=== PATIENT | female | born 1935 | race Two or more races ===

== ENCOUNTER 2021-07-05 10:15 | Inpatient (IN) | payer BC, MEDICARE, OTHER ==
[~2021-07-05] VITALS: Ht 152.4 cm; Wt 69.2 kg
[2021-07-05 11:13] LABS: Basophils # (auto) 0 10 ^3/uL (0-0.2); Basophils % (auto) 0.2 % (0.0-2.0); Eosinophils # (auto) 0 10 ^3/uL (0-0.8); Hematocrit 41.5 % (36.0-46.0); Hemoglobin 14.1 g/dL (12.2-16.2); Lymphocytes % (auto) 6.7 % (10.0-50.0); Mean Corpuscular Hemoglobin 30.6 pg (28.0-32.0); Monocytes # (auto) 0.8 10 ^3/uL (0-1.3); Neutrophils # (auto) 13.1 10 ^3/uL (1.6-8.6); Neutrophils % (auto) 88.1 % (37.0-80.0); Red Blood Cells 4.61 10^6/uL (4.0-5.20); Red Cell Distribution Width 13.5 % (11.8-14.3); White Blood Cell 14.9 10^3/uL (4.4-10.8)
[2021-07-05 11:27] LABS: Albumin 3.2 g/dL (3.4-5.0); Anion Gap 5 (5-15); Calcium 8.6 mg/dL (8.5-10.1); Carbon Dioxide 24 mmol/L (21-32); Chloride 106 mmol/L (98-107); Potassium 3.9 mmol/L (3.5-5.1); Sodium 135 mmol/L (136-145)
[2021-07-05 11:39] LABS: Alanine Aminotransferase 24 U/L (13-56); Alkaline Phosphatase 66 U/L (45-117); Aspartate Aminotransferase 14 U/L (15-37); BUN/Creatinine Ratio 11.6; Bilirubin, Total 0.7 mg/dL (0.2-1.0); Blood Urea Nitrogen 11 mg/dL (7-18); GFR African American 72 mL/min; GFR Non-African American 60 mL/min; Glucose 182 mg/dL (74-106); Total Protein 8.1 g/dL (6.4-8.2)
[2021-07-05] MEDS ORDERED: ACETAMINOPHEN 325 MG TAB PO ONE (12:30)
[2021-07-05] MEDS ORDERED: cefTRIAXone 1GM/50ML D5W 50 ML IV ONE (13:00)
[2021-07-05] MEDS ORDERED: NITROGLYCERIN 0.4 MG SL TAB SL PRN (15:15)
[2021-07-05] MEDS ORDERED: MORPHINE SULFATE INJECTION 2 MG/2 ML SYRG IV PRN (15:15)
[2021-07-05] MEDS ORDERED: levoFLOXacin 500MG 100 ML IV ONE (15:34)
[2021-07-05] MEDS: MORPHINE SULFATE INJECTION 2 MG/2 ML SYRG IV PRN ×2 (16:05→20:55)
[2021-07-05] MEDS: ONDANSETRON HCL 4 MG/2 ML VIAL IV PRN (16:06)
[2021-07-05] MEDS ORDERED: CLON0.1T PO (19:17)
[2021-07-05] MEDS ORDERED: GLIM-5 PO (19:17)
[2021-07-05] MEDS ORDERED: POTA1TAB61 PO (19:19)
[2021-07-05] MEDS ORDERED: SITA100T7 PO (19:19)
[2021-07-05] MEDS: ACETAMINOPHEN 500 MG TAB PO PRN (20:54)
[2021-07-05] MEDS ORDERED: ACETAMINOPHEN 500 MG TAB PO ONE (21:00)
[2021-07-05] MEDS: POTASSIUM CHLORIDE PO SCH (22:00)
[2021-07-05 22:09] LABS: Urine Bacteria NONE SEEN /hpf (None Seen); Urine Blood Negative /uL (Negative); Urine Specific Gravity 1.017 (1.001-1.035); Urine WBC 1 /hpf (0 - 5)
[2021-07-05] MEDS ORDERED: hydrALAZINE HCL 20 MG/ML VL IV PRN (22:30)
[2021-07-05 23:47] VITALS: BP 156/68
[2021-07-06] VITALS (7 sets, daily range): BP systolic 118–158; BP diastolic 50–82
[2021-07-06 05:41] LABS: Basophils # (auto) 0 10 ^3/uL (0-0.2); Basophils % (auto) 0.2 % (0.0-2.0); Eosinophils # (auto) 0 10 ^3/uL (0-0.8); Hematocrit 42.7 % (36.0-46.0); Hemoglobin 14.8 g/dL (12.2-16.2); Lymphocytes # (auto) 1.5 10 ^3/uL (0.4-5.4); Lymphocytes % (auto) 9.4 % (10.0-50.0); Mean Corpuscular Hemoglobin 31.1 pg (28.0-32.0); Mean Corpuscular Hgb Conc. 34.6 g/dL (32.0-36.0); Monocytes # (auto) 0.9 10 ^3/uL (0-1.3); Monocytes % (auto) 5.2 % (0.0-12.0); Neutrophils % (auto) 85.2 % (37.0-80.0); Nucleated Red Blood Cells % 0.1 %; Red Blood Cells 4.75 10^6/uL (4.0-5.20); Red Cell Distribution Width 13.2 % (11.8-14.3); White Blood Cell 16.4 10^3/uL (4.4-10.8)
[2021-07-06 06:00] LABS: BUN/Creatinine Ratio 11.2; Bilirubin, Total 0.6 mg/dL (0.2-1.0); Calcium 8.9 mg/dL (8.5-10.1); Total Protein 8.3 g/dL (6.4-8.2)
[2021-07-06] MEDS: MORPHINE SULFATE INJECTION 2 MG/2 ML SYRG IV PRN (09:03)
[2021-07-06] MEDS: GLIMEPIRIDE 1 MG PO SCH (09:04)
[2021-07-06] MEDS: levoFLOXacin 250MG 50 ML IV SCH (09:04)
[2021-07-06] MEDS: POTASSIUM CHLORIDE PO SCH ×2 (09:05→22:00)
[2021-07-06] MEDS: cloNIDine HCL 0.1 MG TAB PO SCH (09:21)
[2021-07-06] MEDS: ACETAMINOPHEN 500 MG TAB PO PRN (09:21)
[2021-07-06] MEDS: LACTULOSE 20Gm/30ML SOLN PO PRN (22:19)
[2021-07-07 05:00] VITALS: BP 168/78
[2021-07-07] MEDS: ONDANSETRON HCL 4 MG/2 ML VIAL IV PRN (08:01)
[2021-07-07] MEDS: MORPHINE SULFATE INJECTION 2 MG/2 ML SYRG IV PRN (08:02)
[2021-07-07 09:00] VITALS: BP 161/77
[2021-07-07] MEDS: levoFLOXacin 250MG 50 ML IV SCH (09:37)
[2021-07-07] MEDS: POTASSIUM CHLORIDE PO SCH ×2 (09:38→22:00)
[2021-07-07] MEDS: GLIMEPIRIDE 1 MG PO SCH (09:38)
[2021-07-07] MEDS: cloNIDine HCL 0.1 MG TAB PO SCH (09:38)
[2021-07-07 13:09] VITALS: BP 120/61
[2021-07-07 16:53] VITALS: BP 113/63
[2021-07-07] MEDS: LACTULOSE 20Gm/30ML SOLN PO PRN (21:56)
[2021-07-07 22:00] VITALS: BP 145/68
[2021-07-08] MEDS: MORPHINE SULFATE INJECTION 2 MG/2 ML SYRG IV PRN ×3 (04:01→23:42)
[2021-07-08 05:00] VITALS: BP 132/64
[2021-07-08] MEDS: POTASSIUM CHLORIDE PO SCH ×2 (08:36→22:00)
[2021-07-08] MEDS: GLIMEPIRIDE 1 MG PO SCH (08:36)
[2021-07-08 09:00] VITALS: BP 161/83
[2021-07-08] MEDS: levoFLOXacin 250MG 50 ML IV SCH (09:23)
[2021-07-08] MEDS: cloNIDine HCL 0.1 MG TAB PO SCH (09:24)
[2021-07-08] MEDS: LACTULOSE 20Gm/30ML SOLN PO PRN (10:40)
[2021-07-08 12:53] VITALS: BP 111/65
[2021-07-08 13:21] LABS: Basophils # (auto) 0 10 ^3/uL (0-0.2); Basophils % (auto) 0.5 % (0.0-2.0); Eosinophils # (auto) 0 10 ^3/uL (0-0.8); Eosinophils % (auto) 0.3 % (0.0-7.0); Hematocrit 41.2 % (36.0-46.0); Hemoglobin 13.6 g/dL (12.2-16.2); Lymphocytes % (auto) 25.2 % (10.0-50.0); Mean Corpuscular Hemoglobin 29.7 pg (28.0-32.0); Mean Corpuscular Hgb Conc. 33.1 g/dL (32.0-36.0); Mean Corpuscular Volume 89.6 fL (80.0-100.0); Monocytes # (auto) 0.7 10 ^3/uL (0-1.3); Monocytes % (auto) 9.3 % (0.0-12.0); Neutrophils # (auto) 5.1 10 ^3/uL (1.6-8.6); Neutrophils % (auto) 64.7 % (37.0-80.0); Nucleated Red Blood Cells % 0.1 %; Red Cell Distribution Width 13.4 % (11.8-14.3); White Blood Cell 7.9 10^3/uL (4.4-10.8)
[2021-07-08 13:56] LABS: Calcium 8.6 mg/dL (8.5-10.1); Potassium 3.5 mmol/L (3.5-5.1)
[2021-07-08 14:00] LABS: BUN/Creatinine Ratio 18.1
[2021-07-08] MEDS: ONDANSETRON HCL 4 MG/2 ML VIAL IV PRN (14:44)
[2021-07-08] MEDS ORDERED: GLIM1TAB PO (14:48)
[2021-07-08] MEDS ORDERED: FURO20TA3 PO (14:48)
[2021-07-08 17:00] VITALS: BP 126/60
[2021-07-08] MEDS ORDERED: LEVO500T31 PO (17:51)
[2021-07-08 20:00] VITALS: BP 105/70
[2021-07-08 22:00] VITALS: BP 160/82
[2021-07-09 05:00] VITALS: BP 152/95
[2021-07-09 08:53] VITALS: BP 162/91
[2021-07-09] MEDS: POTASSIUM CHLORIDE PO SCH (10:00)
[2021-07-09] MEDS: GLIMEPIRIDE 1 MG PO SCH (10:00)
[2021-07-09] MEDS: cloNIDine HCL 0.1 MG TAB PO SCH (10:00)
[2021-07-09] MEDS: levoFLOXacin 250MG 50 ML IV SCH (10:00)
== END 2021-07-09 10:03 | disposition home or self-care (01) | DRG 872 ==
LOC: ER 10:15 → EDBD 10:15 → TELE 15:05 → TELE-WESTW 23:00
PROVIDERS: ADMIT Internal Medicine; ATTEND Internal Medicine
DX: A41.9 Sepsis, unspecified organism (principal); N39.0 Urinary tract infection, site not specified; I10 Essential (primary) hypertension; E11.9 Type 2 diabetes mellitus without complications; Z20.822 Contact with and (suspected) exposure to COVID-19; Z88.0 Allergy status to penicillin; Z79.84 Long term (current) use of oral hypoglycemic drugs
CPT/HCPCS: 36415; 71045; 80048; 80053; 81001; 82550; 82728; 83880; 84484; 85025; 86141; 87040; 87086; 87426; 93005; 96365; 96367; G0378; J0696; J1956; J2405

== ENCOUNTER 2025-07-27 13:33 | Emergency (ER) | payer BC, MEDICARE, OTHER ==
[~2025-07-27] VITALS: Ht 152.4 cm; Wt 63.6 kg
[~2025-07-27 13:33] MED LIST: CLON0.1T PO; FURO20TA3 PO; GLIM-38 PO; GLIM1TAB PO; LEVO500T31 PO; POTA-215 PO; SITA100T7 PO
--- NOTE | 2025-07-27 14:43 | DVH ---
CHEST RADIOGRAPH Indication: dizziness Technique: Single frontal view of the chest was obtained Comparison: CHEST PORTABLE on DOS: 07/05/21 FINDINGS: Lines and Tubes: None Lungs: No focal consolidation. Left basilar linear atelectasis. Pleura: No effusion. No pneumothorax. Cardiomediastinal contours: Borderline cardiomegaly with mild Atherosclerotic calcification and uncoi ling of the aorta. Bones: No acute osseous abnormality. IMPRESSION: Left basilar atelectasis. Otherwise, No acute cardiopulmonary disease.
[2025-07-27 14:46] LABS: Hematocrit 45.2 % (36.0-46.0); Hemoglobin 15.4 g/dL (12.2-16.2); Mean Corpuscular Hemoglobin 31.2 pg (28.0-32.0); Mean Corpuscular Volume 91.4 fL (80.0-100.0); Nucleated Red Blood Cells % 0.1 %
--- NOTE | 2025-07-27 14:50 | DVH ---
CT HEAD WITHOUT CONTRAST Indication: dizziness EXAM DATE: 07/27/2025 02:13 PM COMPARISON: None TECHNIQUE: CT of the head without intravenous contrast. RADIATION DOSE: CTDIvol: 50.87 mGy, DLP: 901 mGy*cm FINDINGS: There is no intracranial hemorrhage. There is no extra-axial fluid, mass, mass effect or midline shif t. The ventricles are midline and normal in size. Basilar cisterns are patent. There are mild periven tricular and subcortical white matter chronic microvascular ischemic changes. Mild global cerebral v olume loss prior The paranasal sinuses and mastoids are well-pneumatized. Imaged portion of the orbits are unremarkabl e. IMPRESSION: No intracranial hemorrhage or mass effect. Mild chronic microvascular ischemic changes. Mild global cerebral volume loss.
[2025-07-27 14:52] LABS: Chloride 103 mmol/L (98-107); Potassium 4.2 mmol/L (3.5-5.1); Sodium 137 mmol/L (136-145)
[2025-07-27 14:53] LABS: Anion Gap 7 (5-15); Carbon Dioxide 27 mmol/L (20-31)
[2025-07-27 14:54] LABS: Calcium 9.6 mg/dL (8.7-10.4)
[2025-07-27 14:59] LABS: BUN/Creatinine Ratio 12.1 (10.0-20.0); Blood Urea Nitrogen 13 mg/dL (9-23); Glucose 270 mg/dL (74-106)
--- NOTE | 2025-07-27 16:52 | ED.PDOC ---
HPI (NEURO) HPI Comments This is a 89 year old female DEANDREA presenting to the ED with chief complaint of dizziness. Patient reports that she has been experiencing dizziness with associated headache for the past 3 days. Patient denies any chest pain, SOB, N/V, numbness, or weakness. 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, Medications, Allergies Information Source: Patient, Emergency Med Personnel Mode of Arrival: EMS Severity: Moderate Dizziness/Weakness Severity: Unable to do activities Headache Severity: Moderate Timing: Days Duration: Since onset Prehospital treatment: None Headache Quality: Aching Headache Location: Generalized Onset: At rest Circumstances: Spontaneous Symptoms: Vertigo Past Medical History PAST MEDICAL HISTORY: HTN Surgical History: Denies all surgeries HAND BANDER History: No Pertinent HAND BANDER History Family History Family History: Reviewed,noncontributory to illness Social History Smoker: Non-Smoker Alcohol: Denies ETOH Use Drugs: Denies Drug Use Lives In: Home Constitutional: denies: chills, diaphoresis, fatigue, fever, malaise, sweats, weakness, others EENTM: denies: blurred vision, double vision, ear bleeding, ear discharge, ear drainage, ear pain, ear ringing, eye pain, eye redness, hearing loss, mouth pain, mouth swelling, nasal discharge, nose bleeding, nose congestion, nose pain, photophobia, tearing, throat pain, throat swelling, voice changes, others Respiratory: denies: cough, hemoptysis, orthopnea, SOB at rest, shortness of breath, SOB with excertion, stridor, wheezing, others Cardiovascular: denies: chest pain, dizzy spells, diaphoresis, Dyspnea on exertion, edema, irregular heart beat, left arm pain, lightheadedness, palpitations, PND, syncope, others Gastrointestinal: denies: abdomen distended, abdominal pain, blood streaked bowels, constipated, diarrhea, dysphagia, difficulty swallowing, hematemesis, melena, nausea, poor appetite, poor fluid intake, rectal bleeding, rectal pain, vomiting, others Genitourinary: denies: abnormal vagina bleeding, burning, dyspareunia, dysuria, flank pain, frequency, hematuria, incontinence, pain, , vagina discharge, urgency, others Neurological: reports: dizziness, headache; denies: fainting, left sided numbness, left sided weakness, numbness, paresthesia, pre-existing deficit, right sided numbness, right sided weakness, seizure, speech problems, tingling, tremors, weakness, others Musculoskeletal: denies: back pain, gout, joint pain, joint swelling, muscle pain, muscle stiffness, neck pain, others Integumetry: denies: bruises, change in color, change in hair/nails, dryness, laceration, lesions, lumps, rash, wounds, others Allergic/Immunocompromised: denies: Difficulty Healing, Frequent Infections, Hives, Itching, others Hematologic/Lymphatic: denies: anemia, blood clots, easy bleeding, easy bruising, swollen glands, others Endocrine: denies: excessive hunger, excessive sweating, excessive thirst, excessive urination, flushing, intolerance to cold, intolerance to heat, unexplained weight gain, unexplained weight loss, others Psychiatric: denies: anxiety, bipolar disorder, depression, hopeless, panic disorder, schizophrenia, sleepless, suicidal, others All Other Systems: Reviewed and Negative Physical Exam General Appearance: No Apparent Distress, Normal HEENT: Normal ENT Inspection, Pharynx Normal, TMs Normal Neck: Full Range of Motion, Non-Tender, Normal, Normal Inspection Respiratory: Chest Non-Tender, Lungs Clear, No Accessory Muscle Use, No Respiratory Distress, Normal Breath Sounds Cardiovascular: No Edema, No JVD, No Murmur, No Gallop, Normal Peripheral Pulses, Regular Rate/Rhythm Breast Exam: Deferred Gastrointestinal: No Organomegaly, Non Tender, No Pulsatile Mass, Normal Bowel Sounds, Soft Genitalia: Deferred Pelvic: Deferred Rectal: Deferred Extremities: No calf tenderness, Normal capillary refill, Normal inspection, Normal range of motion, Non-tender, No pedal edema Musculoskeletal : Apperance: Normal Neurologic: Alert, 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 Was a procedure done?: No Differential Diagnosis (SZ) Seizure: CVA/TIA, Hypocalcemia, Hypoglycemia, Hyponatremia CVA: Hypoglycemia, Hypoxemia General Weakness: Dehydration, Dysrhythmia, Electrolyte imbalance, Myocardial infarction, TIA Headache: N/A X-Ray, Labs, Meds, VS Vital Signs Date Time Temp Pulse Resp B/P (MAP) Pulse Ox O2 Delivery O2 Flow Rate FiO2 07/27/25 16:51 97.7 72 20 153/87 (109) 94 97.7 07/27/25 13:48 61 07/27/25 13:39 98.3 64 12 163/72 97 98.3 Lab Test 07/27/25 15:20 07/27/25 14:37 Range/Units Troponin I High Sensitivity 3 L < 3 L </=34 ng/L White Blood Count 8.2 4.4-10.8 10^3/uL Red Blood Count 4.94 4.0-5.20 10^6/uL Hemoglobin 15.4 12.2-16.2 g/dL Hematocrit 45.2 36.0-46.0 % Mean Corpuscular Volume 91.4 80.0-100.0 fL Mean Corpuscular Hemoglobin 31.2 28.0-32.0 pg Mean Corpuscular Hemoglobin Concent 34.1 32.0-36.0 g/dL Red Cell Distribution Width 13.0 11.8-14.3 % Platelet Count 354 140-450 10^3/uL Mean Platelet Volume 8.1 6.9-10.8 fL Neutrophils (%) (Auto) 52.9 37.0-80.0 % Lymphocytes (%) (Auto) 41.2 10.0-50.0 % Monocytes (%) (Auto) 4.9 0.0-12.0 % Eosinophils (%) (Auto) 0.5 0.0-7.0 % Basophils (%) (Auto) 0.5 0.0-2.0 % Neutrophils # (Auto) 4.3 1.6-8.6 10 ^3/uL Lymphocytes # (Auto) 3.4 0.4-5.4 10 ^3/uL Monocytes # (Auto) 0.4 0-1.3 10 ^3/uL Eosinophils # (Auto) 0 0-0.8 10 ^3/uL Basophils # (Auto) 0 0-0.2 10 ^3/uL Nucleated Red Blood Cells 0.1 % Sodium Level 137 136-145 mmol/L Potassium Level 4.2 3.5-5.1 mmol/L Chloride Level 103 98-107 mmol/L Carbon Dioxide Level 27 20-31 mmol/L Anion Gap 7 5-15 Blood Urea Nitrogen 13 9-23 mg/dL Creatinine 1.07 H 0.550-1.02 mg/dL Glomerular Filtration Rate Calc 50 >90 mL/min BUN/Creatinine Ratio 12.1 10.0-20.0 Serum Glucose 270 H 74-106 mg/dL Calcium Level 9.6 8.7-10.4 mg/dL Time of 1ST Reevaluation: 17:00 Reevaluation 1ST: Unchanged Patient Education/Counseling: Diagnosis, Treatment Family Education/Counseling: No Family Present Departure 1 Departure Time of Disposition: 17:05 (Patient presented with near syncope today and should be admitted. Data: 1. I ordered and reviewed the result of at least 3 labs including a CBC, BMP, and troponin. 2. I independently interpreted the following tests: EKG which shows a sinus arrhythmia and a chest x-ray which shows benign chest and a CT head which shows benign brain.Risk:This patient has a high risk of morbidity due to further diagnostic testing or treatment and may suffer from an acute cardiac, neurologic, or infectious disorder. 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 Electronically submitted by Fili Gould ([email or web address]). BLESSING TAVARES MD Jul 27, 2025 16:52
[2025-07-27] MEDS: ACETAMINOPHEN 325 MG TAB PO ONE (17:59)
[2025-07-27] MEDS: SODIUM CHLORIDE 0.9% 1,000 ML IV ONE (18:00)
--- NOTE | 2025-07-27 18:48 | ECG ---
[facility] Test Date: 2025-07-27 Test Time: 13:45:46 Pat Name: OSMAN LANDAVERDE Department: Room: Gender: F Chief Information Security Officer: ALEXANDREA : 1935 Requested By: BLESSING TAVARES Order Number: [id number] Reading MD: Moris Rm Measurements Intervals [place] Rate: 61 P: -29 HI: 187 QRS: -18 QRSD: 86 T: 13 QT: 393 QTc: 396 Interpretive Statements Sinus rhythm Left ventricular hypertrophy Inferior infarct, old Electronically Signed On 07-31-2025 10:19:38 PDT by Moris Rm Please click the below link to view image of tracing.
[2025-07-27 19:25] VITALS: BP 179/87; PULSE 64; RESP 12; TEMP 97.7; O2SAT 96
[2025-07-27 19:42] LABS: Urine Budding Yeast LOADED /hpf (None Seen); Urine Protein, UAD Negative (Negative)
== END 2025-07-27 19:35 | disposition home or self-care (01) ==
LOC: ER 13:33 → EDBD 13:33 → ER 19:35
DX: R55 Syncope and collapse (principal); G43.109 Migraine with aura, not intractable, without status migrainosus; R53.1 Weakness; I10 Essential (primary) hypertension; Z79.899 Other long term (current) drug therapy
CPT/HCPCS: 36415; 70450; 71045; 80048; 81001; 84484; 85025; 93005; 96360; 99285; J7030